=== PATIENT | female | born 1965 | race Asian ===

== ENCOUNTER 2022-06-30 07:52 | Outpatient (CLI) | payer OTHER, SELFPAY ==
--- NOTE | 2022-06-30 08:15 | CRLHL7_ITS ---
For Patients: As a result of the Century Cures Act, medical imaging exams and procedure reports are released immediately into your electronic medical record. You may view this report before your referring provider. If you have questions, please contact your health care provider. BILATERAL SCREENING MAMMOGRAM WITH COMPUTER-AIDED DETECTION TECHNIQUE: CC and MLO views were obtained. These mammographic images have been obtained using full-field digital technique. These mammographic images were interpreted with the benefit of computer-aided detection. COMPARISON FILM: 01/08/20, 08/23/18, 02/10/17, 01/01/2016. FINDINGS: The breasts are heterogeneously dense, which may obscure small masses IMPRESSION: There is no radiographic evidence for malignancy. ASSESSMENT: BI-RADS Category 2: Benign RECOMMENDATION: Routine screening mammogram in 1 year. A lay language report of this examination will be provided to the patient. Fran Mcmullen M.D. Diagnostic/Musculoskeletal Radiologist [email or web address] KO/Dictated by: Fran Mcmullen MD @ 07/01/2022 7:40:00 AM (Electronically Signed)
== END 2022-06-30 07:53 | disposition home or self-care (01) ==
PROVIDERS: PCP Physician Assistant Medical; Visit Provider Physician Assistant Medical
DX: Z12.31 Encounter for screening mammogram for malignant neoplasm of breast (principal); R92.2 Inconclusive mammogram
CPT/HCPCS: 77063; 77067

== ENCOUNTER 2022-10-11 15:42 | Outpatient (CLI) | payer OTHER, SELFPAY | END 2022-10-11 15:43 | disposition home or self-care (01) | LOC: FRMREF 10-19 11:10 | PROVIDERS: PCP Physician Assistant Medical; Visit Provider Nurse Practitioner Family | DX: R39.15 Urgency of urination (principal); N39.0 Urinary tract infection, site not specified | CPT/HCPCS: 87086; 87186 ==

== ENCOUNTER 2023-07-18 10:16 | Outpatient (CLI) | payer OTHER, SELFPAY | END 2023-07-18 10:17 | disposition home or self-care (01) | PROVIDERS: PCP Physician Assistant Medical; Visit Provider Physician Assistant Medical | DX: Z00.00 Encounter for general adult medical examination without abnormal findings (principal); I10 Essential (primary) hypertension; M10.9 Gout, unspecified; E66.9 Obesity, unspecified | CPT/HCPCS: 80053; 80061; 84443; 84550 ==

== ENCOUNTER 2023-10-20 14:00 | Outpatient (CLI) | payer OTHER, SELFPAY ==
--- NOTE | 2023-10-20 13:00 | CRLHL7_ITS ---
For Patients: As a result of the Century Cures Act, medical imaging exams and procedure reports are released immediately into your electronic medical record. You may view this report before your referring provider. If you have questions, please contact your health care provider. BILATERAL SCREENING MAMMOGRAM WITH COMPUTER-AIDED DETECTION TECHNIQUE: CC and MLO views were obtained. These mammographic images have been obtained using full-field digital technique. These mammographic images were interpreted with the benefit of computer-aided detection. COMPARISON FILM: 06/30/22, 01/08/20, 08/23/18. FINDINGS: There are scattered areas of fibroglandular density IMPRESSION: There is no radiographic evidence for malignancy. ASSESSMENT: BI-RADS Category 1: Negative RECOMMENDATION: Routine screening mammogram in 1 year. A lay language report of this examination will be provided to the patient. Jonathan Owens M.D. Diagnostic Radiologist [email or web address] KO/Dictated by: Jonathan Owens MD @ 10/24/2023 9:24:00 AM (Electronically Signed)
== END 2023-10-20 14:01 | disposition home or self-care (01) ==
LOC: MAMMO 14:01
PROVIDERS: PCP Physician Assistant Medical; Visit Provider Physician Assistant Medical
DX: Z12.31 Encounter for screening mammogram for malignant neoplasm of breast (principal)
CPT/HCPCS: 77067

== ENCOUNTER 2024-01-25 11:00 | Outpatient (CLI) | payer OTHER, SELFPAY | END 2024-01-25 11:01 | disposition home or self-care (01) | LOC: FRMREF 11:00 | PROVIDERS: PCP Physician Assistant Medical; Visit Provider Dermatology | DX: L63.9 Alopecia areata, unspecified (principal) | CPT/HCPCS: 84443 ==